=== PATIENT | male | born 1995 | race Caucasian/White ===

== ENCOUNTER 2016-06-07 00:41 | Emergency (ER) | payer SELFPAY ==
[~2016-06-07] VITALS: Ht 175.3 cm; Wt 77.3 kg
[2016-06-07 00:44] VITALS: TEMP 98.5
[2016-06-07 04:18] VITALS: BP 120/83; PULSE 90
== END 2016-06-07 04:24 | disposition home or self-care (01) ==
LOC: COL.ER 00:41
DX: S09.90XA Unspecified injury of head, initial encounter (principal); S01.01XA Laceration without foreign body of scalp, initial encounter; F10.120 Alcohol abuse with intoxication, uncomplicated; Y90.9 Presence of alcohol in blood, level not specified; W22.8XXA Striking against or struck by other objects, initial encounter; Y92.009 Unspecified place in unspecified non-institutional (private) residence as the place of occurrence of the external cause
CPT/HCPCS: J2405; J7030